=== PATIENT | male | born 1945 | race Caucasian/White ===

== ENCOUNTER 2020-09-30 12:58 | Emergency (ER) | payer OTHER, MEDICARE ==
[2020-09-30 13:39] VITALS: BP 158/73; PULSE 71; TEMP 98.8; BMI 28.4
== END 2020-09-30 15:44 | disposition home or self-care (01) ==
LOC: FER 12:58
DX: R05 Cough (principal); R09.81 Nasal congestion; Z11.52 Encounter for screening for COVID-19
CPT/HCPCS: 71045-TC-FY; 99284-25; C9803; U0003

== ENCOUNTER 2023-03-04 20:55 | Emergency (ER) | payer OTHER, MEDICARE ==
[2023-03-04 21:28] VITALS: BP 147/88; PULSE 102; RESP 16; TEMP 99.8; BMI 27.6
[2023-03-04] MEDS ORDERED: CIPROFLOXACIN 500 MG TABLET (RESTRICTED TO ID) PO ONE (22:38)
[2023-03-04] MEDS ORDERED: CIPROFLOXACIN 250 MG TABLET (RESTRICTED TO ID) PO ONE ×2 (22:42→22:50)
== END 2023-03-04 22:49 | disposition home or self-care (01) ==
LOC: FER 20:55
DX: N39.0 Urinary tract infection, site not specified (principal)
CPT/HCPCS: 81003; 81015; 87086; 87186; 99283-25